=== PATIENT | male | born 1980 ===

== ENCOUNTER 2016-11-25 09:44 | Emergency (ER) | payer SELFPAY ==
--- NOTE | 2016-11-25 11:46 | ED ---
Medical Screening - HPI Summary HPI Summary: 36M presents for medical screening exam for immigration papers. He states he needs a mental health exam for immigration papers. He denies any medical history. He denies any si/hi. - History of Current Complaint Chief Complaint: EDGeneral Stated Complaint: NEEDS TO HAVE MEDICAL SCREENING Time Seen by Provider: 11/25/16 10:57 PMH/Surg Hx/FS Hx/Imm Hx Endocrine/Hematology History: Denies: Hx Anticoagulant Therapy Cardiovascular History: Denies: Hx Hypertension Infectious Disease History: Denies: Traveled Outside the [place] in Last 30 Days - Family History Known Family History: Negative: Cardiac Disease - Social History Alcohol Use: Occasionally Substance Use Type: Reports: None Smoking Status (MU): Never Smoked Tobacco Review of Systems Negative: Fever Negative: Chest Pain Negative: Shortness Of Breath All Other Systems Reviewed And Are Negative: Yes Physical Exam Triage Information Reviewed: Yes Vital Signs On Initial Exam: Initial Vitals Temp Pulse Resp BP Pulse Ox 97.2 F 79 16 138/84 98 11/25/16 09:45 11/25/16 09:45 11/25/16 09:45 11/25/16 09:45 11/25/16 09:45 Vital Signs Reviewed: Yes Appearance: Positive: Well-Appearing Skin: Positive: Warm, Dry Head/Face: Positive: Normal Head/Face Inspection Eyes: Positive: Normal, Conjunctiva Clear Respiratory/Lung Sounds: Positive: Clear to Auscultation, Breath Sounds Present Cardiovascular: Positive: Normal, RRR Diagnostics - Vital Signs Vital Signs Temp Pulse Resp BP Pulse Ox 11/25/16 09:45 97.2 F 79 16 138/84 98 - Laboratory Lab Statement: Any lab studies that have been ordered have been reviewed, and results considered in the medical decision making process. Course/Dx - Course Course Of Treatment: 36M presents for medical health screening today for immigration paperwork. Explained that from an ER perspective can not fill out paperwork. Ashwin from mental health explained only can do an urgent evaulation. gave list potental places from .gov of providers that do paperwork for immigrant. patient understands and agrees with plan - Diagnoses Provider Diagnoses: Encounter for medical screening examination Discharge - Discharge Plan Condition: Good Disposition: HOME Referrals: Non Staff,Doctor [Primary Care Provider] - [facility] [place] [facility] [Outside] Additional Instructions: Establish care with primary care physician to follow up with
== END 2016-11-25 11:51 | disposition home or self-care (01) ==
LOC: ED 09:44
DX: Z02.89 Encounter for other administrative examinations (principal)
CPT/HCPCS: 99281